=== PATIENT | female | born 1960 | race Caucasian/White ===

== ENCOUNTER → 2019-01-02 | Outpatient (CLI) | payer OTHER ==
[~2019-01-02] MED LIST: ALBU90OI INH; Antivert25 MG PO; Budeprion Xl300 MG PO; DESL5; ESCI10 PO; ESCI20; FLUSAL1005; FLUSAL5005 INH; GLIM4; HYDACE10B PO; HYDACE5 PO; META800 PO; METF500; METF850; METO25ER; MONT10T; NAPR500 PO; NAPR550 PO; PIOG15; VALSARTAN160 MG PO; Wellbutrin Sr200 MG PO
[2019-01-02 14:09] LABS: Stool Occult Bld Immuno 1 Negative (NEGATIVE)
== END | disposition home or self-care (01) ==
LOC: LAB 12:01 → LAB SHORT 12:01 → LAB FUT 12-13 10:10
PROVIDERS: Family Medicine
DX: Z12.11 Encounter for screening for malignant neoplasm of colon (principal)
CPT/HCPCS: G0328

== ENCOUNTER 2019-04-24 14:59 | Emergency (ER) | payer OTHER ==
[~2019-04-24] VITALS: Ht 175.3 cm; Wt 131.5 kg
[2019-04-24] MEDS ORDERED: NOVOLOG FL100 UNIT/1 (15:15)
[2019-04-24] MEDS ORDERED: LOSARTAN POTASS25 M2 PO (15:15)
[2019-04-24] MEDS ORDERED: INSULANPEN SC (15:16)
[2019-04-24] MEDS ORDERED: METFORMIN HCL500 MG PO (15:16)
[2019-04-24] MEDS ORDERED: Toprol Xl50 MG PO (15:17)
[2019-04-24] MEDS ORDERED: ESCI20 PO (15:18)
[2019-04-24] MEDS ORDERED: SERT25 PO (15:19)
[2019-04-24] MEDS ORDERED: BUPROPION XL150 MG PO (15:19)
[2019-04-24] MEDS ORDERED: CYCL10 PO (16:20)
[2019-04-24] MEDS ORDERED: Norco 5-325 Ta1 EACH PO (16:33)
== END 2019-04-24 17:00 | disposition home or self-care (01) ==
LOC: ER 14:59
DX: S16.1XXA Strain of muscle, fascia and tendon at neck level, initial encounter (principal); S39.012A Strain of muscle, fascia and tendon of lower back, initial encounter; V49.3XXA Car occupant (driver) (passenger) injured in unspecified nontraffic accident, initial encounter; Z88.0 Allergy status to penicillin; Z79.899 Other long term (current) drug therapy; Z79.4 Long term (current) use of insulin; E11.9 Type 2 diabetes mellitus without complications; Z87.891 Personal history of nicotine dependence
CPT/HCPCS: 72040; 72100; 99283-25; A9270-GY

== ENCOUNTER → 2019-10-07 | Outpatient (CLI) | payer OTHER ==
[~2019-10-07] MED LIST changes: +BUPROPION XL150 MG PO; +CYCL10 PO; +ESCI20 PO; +INSULANPEN SC; +LOSARTAN POTASS25 M2 PO; +METFORMIN HCL500 MG PO; +NOVOLOG FL100 UNIT/1; +Norco 5-325 Ta1 EACH PO; +SERT25 PO; +Toprol Xl50 MG PO
[2019-10-07 18:41] LABS: Influenza A Negative (NEGATIVE); Influenza B Negative (NEGATIVE)
== END | disposition home or self-care (01) ==
LOC: LAB 16:56 → LAB SHORT 16:56
PROVIDERS: Family Medicine
DX: R50.9 Fever, unspecified (principal)
CPT/HCPCS: 87804

== ENCOUNTER 2023-01-12 14:41 | Inpatient (IN) | payer OTHER ==
[~2023-01-12] VITALS: Ht 172.7 cm; Wt 132.8 kg
[~2023-01-12 14:41] MED LIST changes: +BUPROPION XL150 M1 PO; -BUPROPION XL150 MG PO
[2023-01-12 18:42] LABS: BASOPHILS ABSOLUTE AUTO 0.06 K/mm3 (0.00-0.23); BASOPHILS PERCENT AUTO 1 % (0-2); EOSINOPHILS ABSOLUTE AUTO 0.54 K/mm3 (0.00-0.68); EOSINOPHILS PERCENT AUTO 5 % (0-6); Hematocrit 37.9 % (33.0-51.0); Hemoglobin 11.6 g/dL (11.5-16.0); IMMATURE GRAN ABSOLUTE AUTO 0.05 K/mm3 (0.00-0.10); IMMATURE GRAN PERCENT AUTO 1 % (0-1); LYMPHOCYTES ABSOLUTE AUTO 2.71 K/mm3 (0.84-5.20); LYMPHOCYTES PERCENT AUTO 24 % (21-46); MONOCYTES ABSOLUTE AUTO 0.75 K/mm3 (0.16-1.47); MONOCYTES PERCENT AUTO 7 % (4-13); Mean Corpuscular HGB 26.1 pg (26.0-34.0); Mean Corpuscular HGB Conc 30.6 g/dL (31.5-36.5); Mean Corpuscular Volume 85 fL (80-100); Mean Platelet Volume 10.1 fL (9.1-12.4); NEUTROPHILS PERCENT AUTO 63 % (41-73); Platelet Count 259 K/mm3 (150-400); RDW Coefficient Variation 15.8 % (11.7-14.2); Red Blood Cell Count 4.45 M/mm3 (3.80-5.20); White Blood Cell Count 11.11 K/mm3 (4.00-11.30)
[2023-01-12 18:50] LABS: Albumin, Blood 3.3 g/dL (3.4-5.0); Albumin/Globulin Ratio 0.9 (0.8-1.8); Bilirubin, Total 0.2 mg/dL (0.1-1.0); Bun/Creatinine Ratio 15.1 (12.0-20.0); Calcium, Blood 9.5 mg/dL (8.5-10.1); Creatinine, Blood 0.86 mg/dL (0.40-1.00); Globulin, Blood 3.8 g/dL (2.2-4.0); Potassium, Blood 3.9 mmol/L (3.5-5.5); Total Protein, Blood 7.1 g/dL (6.4-8.2)
[2023-01-12] MEDS ORDERED: ATORVASTATIN CA20 MG PO (19:58)
[2023-01-12] MEDS ORDERED: AMLODIPINE BESYL5 MG PO (19:59)
[2023-01-12] MEDS ORDERED: AMOX-CLAV 875-1 EAC5 PO (20:39)
[2023-01-12] MEDS ORDERED: FLUTICASONE-SA1 EAC9 INH (20:41)
[2023-01-12] MEDS ORDERED: BYDUREON B2 MG/0.81 SC (20:43)
[2023-01-12] MEDS ORDERED: CYMBALTA20 M2 PO (20:44)
[2023-01-12] MEDS ORDERED: LAMOTRIGINE100 M1 PO (20:45)
[2023-01-12] MEDS ORDERED: INSULIN AS100 UNIT/8 SC (20:54)
[2023-01-12] MEDS ORDERED: STEGLATRO15 MG PO (20:54)
[2023-01-12] MEDS ORDERED: OMEP20ER PO (20:55)
[2023-01-12] MEDS ORDERED: Gabapentin600 MG PO (20:55)
[2023-01-12 21:43] VITALS: BP 128/104
[2023-01-12 21:54] VITALS: BP 106/61
--- NOTE | 2023-01-13 05:17 | NUR ---
341 SHIFT SUMMARY PT IS A NEW ADMIT THIS SHIFT FOR RIGHT ARM CELLULITIS DUE TO A DOG BITE THREE DAYS AGO. PT IS A&OX4, AND CALLS APPROPRIATELY. SHE IS IND IN THE ROOM, CONTINENT, ON ROOM AIR, AND IS NOT ON TELEMETRY. THE PT S ONLY COMPLAINT THIS SHIFT IS PAIN IN HER RIGHT ARM. SHE WAS MEDICATED PER EMAR FOR PAIN. AT HOME, THE PT WEARS A CPAP AT NIGHT AND SHE TRIED THE HOSPITALS AND REFUSED THE MASK WE HAD. SHE STATED SHE WILL HAVE HERS BROUGHT IN FOR THE NEXT FEW NIGHTS. PT REFUSED ANY EXTRA OXYGENATION WHILE SHE SLEPT. HER BED IS IN LOW AND CALL LIGHT IS IN REACH. SEE NOTES FOR ANY UPDATES.
[2023-01-13 06:05] VITALS: BP 109/63
[2023-01-13 07:40] VITALS: BP 129/74
[2023-01-13 16:14] VITALS: BP 123/75
[2023-01-13 19:28] VITALS: BP 143/69
--- NOTE | 2023-01-13 19:39 | NUR ---
PT VERY PLEASANT TODAY. PAIN MANAGED WITH AVAIL MEDS. VSS. H/R REG, NO MURMUR NOTED. NO TELE, NO EDEMA NOTED. LUNGS CLEAR, RESP EASY, UNLABORED. ON R.A. BT X4 LAST BM 2 DAYS. VOIDS INDEPENDANT TO BATHROOM. CELLULITIS ON RT ARM , 2 WOUNDS NOTED. MARKED WITH SHARPIE. PT STATES SOME IMPROVEMENT. ADMIN OF ABX PER EMAR. NO NEW CONCERNS NOTED. BED IN LOW POSITION, CALL LITE IN REACH, CALLS APPROP
[2023-01-14 03:49] VITALS: BP 138/66
--- NOTE | 2023-01-14 04:40 | NUR ---
SHIFT SUMMARY: PT A&O X4. PT PLEASANT AND COOPERATIVE WITH ALL CARE. NO ACUTE CHANGES WITH PT THIS SHIFT. PT C/O OF SLIGHT BURNING/TINGLING IN R.ARM BUT DECLINED OFFER FOR PAIN MEDICATION. PT INDEPENDENT IN ROOM. IV ABX GIVEN W/O COMPLICATIONS. PT ARM RED AND HOT. WOUND WITHIN BORDER. CALL LIGHT IN REACH. BED IN LOWEST POSITION. WILL CONTINUE TO MONITOR.
[2023-01-14 07:10] VITALS: BP 129/70
--- NOTE | 2023-01-14 07:10 | NUR ---
PATIENT CONSENT STATEMENT. PT CONSENTED THIS 2ND YEAR [employer] TO PARTICIPATE IN CARE TODAY.
--- NOTE | 2023-01-14 09:56 | NUR ---
RN NOTE MS EDWARD IS UP INDEPENDENTLY, DENIES PROBLEMS WITH VOIDING/STOOL. R ARM PAIN 5/10, DECLINED PAIN MEDS SO FAR THIS SHIFT. C/O INCREASING NUMBNESS AND TENDERNESS TO INNER ARM AREA ABOVE WRIST AND SOME INNER ARM TENDERNESS. SEEN BY DR MEDINA.
[2023-01-14 15:28] VITALS: BP 131/64
--- NOTE | 2023-01-14 17:13 | NUR ---
SHIFT SUMMARY MS EDWARD HAS NOT REQUIRED PAIN MEDS TODAY. RIGHT ARM WOUND UNCHANGED FROM THIS MORNING. NUMBESS/TENDERNESS TO INNER FOREARM NEW SINCE YESTERDAY. US DONE TODAY AND PLANS FOR CONSULT TO DR TEJADA PER DR MEDINA. MS EDWARD IS AMBULATING INDEPENDENTLY, EATING, DRINKING AND VOIDING WELL. CONTINUES ON IV ABX THERAPY.
[2023-01-14 19:23] VITALS: BP 143/73
[2023-01-15 04:12] VITALS: BP 136/56
--- NOTE | 2023-01-15 04:37 | NUR ---
SHIFT SUMMARY PT ADMIT FOR DOG BITE ON RIGHT FOREARM. PT TO RECEIVE SURG CONSULT IN AM . PT ON IV ANTIBIOTICS Q6. STILL EXPERIENCING SOME NUMBNESS/TENDERNESS IN ARM/WRIST AROUND BITE SITE. STERI STRIPS BEGINNING TO PEEL. CUT LOOSE PIECES TO PREVENT TEARING. PT KAW, BUT PLEASANT AND COOPERATIVE. SLEPT THROUGH MAJORITY OF SHIFT.
[2023-01-15 07:50] VITALS: BP 124/74
--- NOTE | 2023-01-15 13:56 | NUR ---
DISCHARGE NOTE MS EDWARD WAS NPO THIS MORNING. SEEN BY DR FLEMING WHO DID NOT RECOMMEND SURGERY AND OK TO RESTART DIET. PT SAID SHE HAS 5/10 R ARM PAIN WHEN QUESTIONED, BUT SAID IT'S NOT PAINFUL ENOUGH TO NEED PAIN MEDICATIONS. UP AMBULATORY, STEADY GAIT, SHE DENIES ANY PROBLEMS VOIDING OR URINATING. GOOD APPETITE. VERBALISED UNDERSTANDING OF WRITTEN AND VERBAL DISCHARGE INSTRUCTIONS. PIV REMOVED INTACT. LEFT WITH HER AT 1400HRS.
== END 2023-01-15 14:00 | disposition home or self-care (01) | DRG 603 ==
LOC: ER 14:41 → MEDS 21:02
PROVIDERS: Student in an Organized Health Care Education/Training Program; ADMIT Internal Medicine
PROC: 5A09357 Assistance with Respiratory Ventilation, Less than 24 Consecutive Hours, Continuous Positive Airway Pressure (ICD-10-PCS; principal; 2023-01-12)
DX: L03.113 Cellulitis of right upper limb (principal); S51.851A Open bite of right forearm, initial encounter; F32.A Depression, unspecified; E11.9 Type 2 diabetes mellitus without complications; G47.33 Obstructive sleep apnea (adult) (pediatric); I10 Essential (primary) hypertension; J45.909 Unspecified asthma, uncomplicated; W54.0XXA Bitten by dog, initial encounter; Z88.0 Allergy status to penicillin; Z79.899 Other long term (current) drug therapy; Z79.4 Long term (current) use of insulin; Z79.84 Long term (current) use of oral hypoglycemic drugs; Z79.51 Long term (current) use of inhaled steroids; Z87.891 Personal history of nicotine dependence; Z90.722 Acquired absence of ovaries, bilateral; Z79.2 Long term (current) use of antibiotics; Z79.02 Long term (current) use of antithrombotics/antiplatelets; Z79.52 Long term (current) use of systemic steroids
CPT/HCPCS: 76882; 80053; 82947; 85025; 94760; 96365; 96367; 99284-25; A9270; J0295; J0696; J1650; J1815; J7030; J7050

== ENCOUNTER → 2023-09-20 | Outpatient (CLI) | payer OTHER ==
[~2023-09-20] MED LIST changes: +AMLODIPINE BESYL5 MG PO; +AMOX-CLAV 875-1 EAC5 PO; +ATORVASTATIN CA20 MG PO; +BYDUREON B2 MG/0.81 SC; +CYMBALTA20 M2 PO; +FLUTICASONE-SA1 EAC9 INH; +Gabapentin600 MG PO; +INSULIN AS100 UNIT/8 SC; +LAMOTRIGINE100 M1 PO; +OMEP20ER PO; +STEGLATRO15 MG PO
== END ==
LOC: LAB SHORT 10:00 → LAB 10:00
DX: R35.0 Frequency of micturition (principal); R30.0 Dysuria
CPT/HCPCS: 87077; 87086; 87186